=== PATIENT | male | born 1950 | race Caucasian/White ===

== ENCOUNTER → 2016-07-26 | Outpatient (CLI) | payer MEDICARE, OTHER ==
[~2016-07-26] MED LIST: NORCO 5/3251 TABLET PO
== END | disposition home or self-care (01) ==
LOC: CDC 09:47
DX: I45.9 Conduction disorder, unspecified (principal); K40.30 Unilateral inguinal hernia, with obstruction, without gangrene, not specified as recurrent
CPT/HCPCS: 93000

== ENCOUNTER 2016-07-27 05:53 | Day surgery (SDC) | payer OTHER ==
[~2016-07-27] VITALS: Ht 182.9 cm; Wt 97.1 kg
[2016-07-27 06:40] VITALS: BP 145/79
[2016-07-27] MEDS ORDERED: NORCO 5/3251 TABLET PO (10:33)
[2016-07-27 11:05] VITALS: BP 146/85
== END 2016-07-27 12:22 | disposition home or self-care (01) ==
LOC: SDC
PROC: 0YQ50ZZ Repair Right Inguinal Region, Open Approach (ICD-10-PCS; principal; 2016-07-27)
DX: K40.30 Unilateral inguinal hernia, with obstruction, without gangrene, not specified as recurrent (principal)
CPT/HCPCS: C1781; J0690; J3010; S0020